=== PATIENT | male | born 1985 | race Caucasian/White ===

== ENCOUNTER → 2020-07-19 12:00 | Outpatient (BNVA) | payer OTHER, SELFPAY | PROVIDERS: Family Provider Family Medicine; Visit Provider Family Medicine | DX: Z11.59 Encounter for screening for other viral diseases (principal); R05 Cough | CPT/HCPCS: 87426 ==

== ENCOUNTER → 2022-05-29 08:42 | Outpatient (BNVA) | payer SELFPAY | PROVIDERS: Family Provider Family Medicine; PCP Dermatology; Visit Provider Dermatology | DX: Z01.89 Encounter for other specified special examinations (principal) ==

== ENCOUNTER → 2023-07-10 08:10 | Outpatient (BNVA) | payer OTHER, SELFPAY | PROVIDERS: Family Provider Family Medicine; PCP Family Medicine; Visit Provider Family Medicine | DX: G89.29 Other chronic pain (principal); R51.9 Headache, unspecified; J02.9 Acute pharyngitis, unspecified | CPT/HCPCS: 80053; 85651 ==

== ENCOUNTER 2023-08-29 07:03 | Outpatient (CLI) | payer OTHER, SELFPAY ==
--- NOTE | 2023-08-29 07:15 | MR_ITS ---
WS: [id number] MRI HEAD WITHOUT CONTRAST TECHNIQUE: Sagittal T1, T2 axial, T2 axial FLAIR, axial and coronal T1 images, axial susceptibility w eighted imaging, axial diffusion weighted images, and coronal T2 images were obtained. CLINICAL INFORMATION: worsening headaches COMPARISON: None. FINDINGS: No evidence of restricted diffusion to suggest acute ischemia. Ventricular system and basal cisterns are patent. Small focus of T2 hyperintensity in the LEFT posterior frontal subcortical white matter. No other suspicious intracranial signal normalities. No parenchymal volume loss. Normal posterior fos sa. Normal vascular flow voids at the skull base. No extra-axial fluid collections. No evidence of ma ss or mass effect. Retention cyst or polyp RIGHT maxillary sinus measuring 2.0 x 1.3 cm. Mild mucosal thickening in the ethmoid air cells. Normal posterior nasopharynx. Mastoid air cells are well aerated. No hemosiderin on the susceptibly weighted images. Normal optic chiasm and pituitary infundibulum. Te mporal lobes and hippocampal formations are normal in appearance. IMPRESSION: 1. No evidence of restricted diffusion to suggest acute ischemia. 2. Single focus of T2 hyperintensity in the LEFT posterior frontal lobe of doubtful clinical signifi cance. This can be seen with hypertension, diabetes, and migraine headaches. 3. No other suspicious intracranial signal normalities. 4. Retention cyst or polyp RIGHT maxillary sinus measures 1.9 x 1.3 cm. 5. No other suspicious findings.
== END 2023-08-29 07:04 | disposition home or self-care (01) ==
LOC: RAD 07:03
PROVIDERS: Family Provider Family Medicine; PCP Family Medicine; Visit Provider Family Medicine
DX: R51.9 Headache, unspecified (principal); G89.29 Other chronic pain
CPT/HCPCS: 70551

== ENCOUNTER → 2024-05-12 09:05 | Outpatient (BNVA) | payer OTHER, SELFPAY | PROVIDERS: Family Provider Family Medicine; PCP Family Medicine; Visit Provider Family Medicine | DX: R51.9 Headache, unspecified (principal); G89.29 Other chronic pain | CPT/HCPCS: 80053; 85025; 86140 ==

== ENCOUNTER 2024-07-07 07:21 | Outpatient (CLI) | payer OTHER, SELFPAY ==
--- NOTE | 2024-07-07 07:30 | CT_ITS ---
WS: [id number] CT NECK TECHNIQUE: Contrast-enhanced CT of the neck with coronal and sagittal reformatted images. CLINICAL INFORMATION: right neck pain and possible enlarged lymph node COMPARISON: None. DLP: 163.[address] scans at [facility] use at least one of these dose optimization techniques: automated e xposure control; mA and/or kV adjustment per patient size (includes targeted exams where dose is matc hed to clinical indication); or iterative reconstruction. FINDINGS: Mastoid air cells are well aerated. Retention cyst or polyp RIGHT maxillary sinus measuring 2.2 x 1.3 cm. Partially visualized paranasal sinuses are otherwise well aerated. Normal posterior nasopharynx. Normal parapharyngeal fat. Parotid glands are normal. Few secretions in the RIGHT vallecula. No evid ence of supraglottic or glottic mass. Normal subglottic airway. Thyroid gland is normal. Lung apices are well aerated. Marker overlying the RIGHT sternocleidomastoid. No underlying cervical lymphadenopathy. Normal underl britton platysma. Tiny underlying lymph node in this area. CT/CT neck w con* [id number] IMPRESSION: 1. No suspicious abnormalities deep to the palpable BB RIGHT neck. Tiny lymph node in this area. 2. Retention cyst or polyp RIGHT maxillary sinus measuring 2.2 x 1.3 cm. 3. Mastoid air cells well aerated. 4. Normal salivary glands. 5. No evidence of supraglottic or glottic mass. Subglottic airway is normal. 6. Normal thyroid enhancement. 7. No other acute findings.
[2024-07-07] MEDS: iohexol 350 mg/mL 500 mL Btl (per mL) IV (07:45)
== END 2024-07-07 07:22 | disposition home or self-care (01) ==
LOC: RAD 07:22
PROVIDERS: PCP Family Medicine; Visit Provider Family Medicine
DX: R59.0 Localized enlarged lymph nodes (principal); J34.1 Cyst and mucocele of nose and nasal sinus
CPT/HCPCS: 70491